=== PATIENT | male | born 1995 | race African-American/Black ===

== ENCOUNTER 2017-12-08 13:06 | Emergency (ER) | payer MEDICAID ==
[~2017-12-08] VITALS: Ht 175.3 cm; Wt 120.0 kg
[2017-12-08] MEDS ORDERED: FLUT1DIS2 IH (13:13)
[2017-12-08] MEDS ORDERED: PREDNISONE 20MG TABLET PO STA (13:21)
[2017-12-08] MEDS ORDERED: IPRATROPIUM BROMIDE (0.02%) 0.5MG/2.5ML NEB HHN STA (13:21)
[2017-12-08] MEDS ORDERED: ALBUTEROL (0.083%) 2.5MG/3ML NEB HHN STA (13:21)
[2017-12-08 15:11] VITALS: BP 121/67
== END 2017-12-08 15:13 | disposition home or self-care (01) ==
LOC: ER 14:34
DX: J45.901 Unspecified asthma with (acute) exacerbation (principal); Z79.899 Other long term (current) drug therapy
CPT/HCPCS: 93005; 94644; 99285; J7512; J7611